=== PATIENT | female | born 1945 | race Caucasian/White ===

== ENCOUNTER 2018-06-28 16:47 | Emergency (ER) | payer MEDICARE, OTHER ==
--- NOTE | 2018-06-28 16:53 | ED Physician Documentation ---
General Adult - HISTORIAN Historian: patient - HPI Stated Complaint: left lower leg and right foot rash Chief Complaint: Skin Rash Onset: days ago (14) Timing: still present Severity: mild Further Comments: yes (reports she started a few weeks ago and she now notes the rash is red and more irratated and she has a small area on the right foot. She has not taken anything due to "I dont take meds" She has tried to soak in vinegar several times per day. No other complaints. She is able to walk. Pain is a zero when just sitting or laying but increases to 4-5 with standing or direct pressure.) - ROS CONST: no problems - PAST HX Past History: hypertension Allergies/Adverse Reactions: Allergies Allergy/AdvReac Type Severity Reaction Status Date / Time No Known Allergies Allergy Verified 06/28/18 17:14 Home Medications: Ambulatory Orders Medication Instructions Recorded Metoprolol Tartrate [Lopressor] 50 mg PO BID 06/28/18 - SOCIAL HX Smoking History: non-smoker Alcohol Use: none Drug Use: none - FAMILY HX Family History: No - REVIEWED ASSESSMENTS Nursing Assessment Reviewed: Yes Vitals Reviewed: Yes General Adult Physical Exam - PHYSICAL EXAM GENERAL APPEARANCE: no distress EENT: eye inspection normal, no signs of dehydration NECK: normal inspection RESPIRATORY: no resp distress, chest non-tender, breath sounds normal CVS: reg rate & rhythm, heart sounds normal ABDOMEN: soft, no distension SKIN: warm/dry, other (left lower leg is red mildly swollen. Pulses + and Cap refill + and senstation + and FROM - right foot with small patch approx 2 cm - no drainage ) EXTREMITIES: non-tender, normal range of motion, no evidence of injury, no edema NEURO: oriented X3 Discharge Clincal Impression: Cellulitis and abscess of foot Referrals: Arsenio Ornelas, [Primary Care Provider] - 2 Days Comments: 1. Bactrim DS take 1 by mouth twice daily x 10 days 2. DO NOT just soak in vinegar 3. Epson salt soak 4. Keep area elevated 5. See PCP in 2 days 6. Return to ER for any concerns Condition: Stable Disposition: 01 HOME, SELF-CARE Decision to Admit: NO Date of Decison to Admit: 06/28/18 Decision Time: 17:19
[2018-06-28 17:33] VITALS: BP 165/76
== END 2018-06-28 17:31 | disposition home or self-care (01) ==
LOC: ED 16:47
DX: L03.115 Cellulitis of right lower limb (principal); L02.611 Cutaneous abscess of right foot
CPT/HCPCS: 99282

== ENCOUNTER 2018-08-27 14:17 | Outpatient (CLI) | payer OTHER ==
--- NOTE | 2018-08-27 15:15 | Diagnostic Imaging Report ---
BHAVNA DE LA CRUZ [facility] [id number] [facility].[address] [id number] Report Submission Date: Aug 27, 2018 3:07:12 PM CDT Patient Study Name: GIO NEWELL Date: Aug 27, 2018 2:26:40 PM CDT Modality Type: US Gender: F Description: US EXTREMITY VEINS UNILAT : 45 Institution: [facility] Physician: BHAVNA DE LA CRUZ Examination: Ultrasound left vein History: LEFT ANKLE PAIN SWELLING Findings: Sonographic evaluation of the left lower extremity venous system from the groin to the popliteal fossa inclusive. Normal compressibility. No luminal filling defect. Normal waveforms and response to augmentation. No popliteal region fluid collection. Imaging in the region of the lateral malleolus without evidence for soft tissue abnormality. Impression: No evidence for deep venous thrombosis. Electronically signed on Aug 27, 2018 3:07:12 PM CDT by: Guy ROLAND
== END 2018-08-27 14:56 ==
LOC: LAB 14:17
PROVIDERS: ATTEND Family Medicine
DX: M79.89 Other specified soft tissue disorders (principal)
CPT/HCPCS: 36415; 84550; 93971